=== PATIENT | female | born 1935 | race African-American/Black ===

== ENCOUNTER 2018-01-05 21:49 | Emergency (ER) | payer OTHER ==
--- NOTE | 2018-01-05 21:55 | PDOC ---
History of Present Illness - General History Source: Patient, Family Exam Limitations: No Limitations - History of Present Illness Initial Comments: 01/05/18 22:04 The patient is an 82 year old female who presents to the emergency department for evaluation of bilateral hand pain and swelling s/p fall at 3pm. The patient reports bilateral hand swelling and pain after landing on her hands to brace falling on the slicked surface of a bowling chandra. She reports moderate bilateral wrist pain. She denies head trauma or loss of consciousness. The patient denies chest pain, shortness of breath, headache, and dizziness. Denies fevers, chills, nausea, vomiting, diarrhea, constipation, or any urinary problems. Allergies: NKDA Past surgical history: Denies. Social history: No reported cigarette, alcohol, or drug use. <Stephen Huang - Last Filed: 01/05/18 22:04> <Stephany Linder - Last Filed: 01/05/18 23:38> - General Chief Complaint: Injury Stated Complaint: B/L HAND SWELLING Past History <Stephen Huang - Last Filed: 01/05/18 22:04> <Stephany Linder - Last Filed: 01/05/18 23:38> - Past Medical History Allergies/Adverse Reactions: Allergies Allergy/AdvReac Type Severity Reaction Status Date / Time No Known Allergies Allergy Unverified 01/05/18 22:01 Home Medications: Ambulatory Orders Acetaminophen [Tylenol] 650 mg PO PRN PRN 01/05/18 Amlodipine Besylate/Benazepril [Lotrel 5-20 mg Capsule] 2 each PO DAILY Review of Systems - Review of Systems Able to Perform ROS?: Yes Comments:: GENERAL/CONSTITUTIONAL: No fever or chills. No weakness. HEAD, EYES, EARS, NOSE AND THROAT: No change in vision. No ear pain or discharge. No sore throat. CARDIOVASCULAR: No chest pain or shortness of breath. RESPIRATORY: No cough, wheezing, or hemoptysis. GASTROINTESTINAL: No nausea, vomiting, diarrhea or constipation. GENITOURINARY: No dysuria, frequency, or change in urination. MUSCULOSKELETAL: (+)Right hand pain. (+)Right hand swelling. (+)Left hand pain. (+)Left hand swelling. No neck or back pain. SKIN: No rash NEUROLOGIC: No headache, vertigo, loss of consciousness, or change in strength/ sensation. ENDOCRINE: No increased thirst. No abnormal weight change. HEMATOLOGIC/LYMPHATIC: No anemia, easy bleeding, or history of blood clots. ALLERGIC/IMMUNOLOGIC: No hives or skin allergy. <Stephen Huagn - Last Filed: 01/05/18 22:04> *Physical Exam - Vital Signs Last Vital Signs Temp Pulse Resp BP Pulse Ox 98.7 F 65 16 145/54 96 01/05/18 21:57 01/05/18 21:57 01/05/18 21:57 01/05/18 21:57 01/05/18 21:57 - Physical Exam Comments: GENERAL: Awake, alert, and fully oriented, in no acute distress HEAD: No signs of trauma EYES: PERRLA, EOMI, sclera anicteric, conjunctiva clear ENT: Auricles normal inspection, hearing grossly normal, nares patent, oropharynx clear without exudates. Moist mucosa NECK: Normal ROM, supple, no lymphadenopathy, JVD, or masses LUNGS: Breath sounds equal, clear to auscultation bilaterally. No wheezes, and no crackles HEART: Regular rate and rhythm, normal S1 and S2, no murmurs, rubs or gallops ABDOMEN: Soft, nontender, normoactive bowel sounds. No guarding, no rebound. No masses EXTREMITIES: (+)Right hand: Swelling over dorsum of wrist. Moderate tenderness over radius. Swelling of dorsum of hand. No swelling of MCP joints, no swelling of fingers, limited range of motion of right wrist. (+)Left hand: mild swelling of radial aspect of wrist, no swelling of hand or fingers. Normal range of motion, no edema. No clubbing or cyanosis. No cords or erythema. NEUROLOGICAL: Cranial nerves II through XII grossly intact. Normal speech. SKIN: Warm, Dry, normal turgor, no rashes or lesions noted. <Stephen Huang - Last Filed: 01/05/18 22:04> Medical Decision Making - Medical Decision Making 01/05/18 22:29 Pt presents to the ED complaining of bilateral pain and swelling over her wrists and the dorsum of her hands. No deformity on exam. Patient is neurovascularly intact. Xrays read by me with no sign of fracture or dislocation. Will discharge home with instructions to follow up with her PMD. <Stephany Linder - Last Filed: 01/05/18 23:38> *DC/Admit/Observation/Transfer - Attestations Scribe Attestion: Documentation prepared by Stephen Huang, acting as medical lab scientist for Stephany Linder MD. <Stephen Huang - Last Filed: 01/05/18 22:04> - Discharge Dispostion Decision to Admit order: No <Stephany Linder - Last Filed: 01/05/18 23:38> Diagnosis at time of Disposition: Radius fracture Qualifiers: Encounter type: initial encounter Radius location: distal Fracture type: closed Fracture morphology: unspecified fracture morphology Laterality: unspecified laterality Qualified Code(s): S52.509A - Unspecified fracture of the lower end of unspecified radius, initial encounter for closed fracture - Discharge Dispostion Disposition: HOME Condition at time of disposition: Good - Referrals Referrals: Brendan Troy MD [Staff Physician] - - Patient Instructions Printed Discharge Instructions: DI for Distal Radius Fracture Additional Instructions: return to the ED for severe wrist pain and swelling, swelling that spreads to your hand and fingers, if you are unable to move your hands or wrists, cold numb blue swollen hands or wrists, other new or worsening symptoms. Follow up with your doctor within one week. Use tylenol for pain. Also use ice and elevation to reduce the swelling. You have distal radius fractures of both wrists, and you need to see an orthopedist. Call Dr. Troy tomorrow to arrange follow up.
[2018-01-05 22:00] VITALS: BP 145/54; PULSE 65; TEMP 98.7; BMI 22.6
== END 2018-01-05 23:41 | disposition home or self-care (01) ==
LOC: FER 21:49
DX: S52.509A Unspecified fracture of the lower end of unspecified radius, initial encounter for closed fracture (principal); W18.39XA Other fall on same level, initial encounter; Y93.89 Activity, other specified; Y92.9 Unspecified place or not applicable
CPT/HCPCS: 73110-TC-LR-FY; 73110-TC-RT-FY; 73130-TC-LR-FY; 73130-TC-RT-FY; 99282-25